=== PATIENT | female | born 1960 | race Caucasian/White ===

== ENCOUNTER 2019-05-24 09:37 | Emergency (ER) | payer OTHER, SELFPAY ==
[2019-05-24] VITALS (10 sets, daily range): BP systolic 148–175; BP diastolic 75–90; PULSE 68–84; RESP 16–20; TEMP 36.4; O2SAT 92–98; BMI 34.2
--- NOTE | 2019-05-24 09:49 | DI.RAD.S_ITS ---
PROCEDURE: XR CHEST 1V INDICATIONS: chest pain TECHNIQUE: One view of the chest was acquired. COMPARISON: None. FINDINGS: Surgical changes and devices: None. Lungs and pleura: Lungs are clear. No pleural effusions or pneumothorax. Mediastinum: Mediastinal contours appear normal. Heart size is normal. Bones and chest wall: No suspicious bony lesions. Overlying soft tissues appear unremarkable. IMPRESSION: No evidence acute pulmonary process. Dictated by: Matthew Simmons M.D. on 05/24/2019 at 10:25 Approved by: Matthew Simmons M.D. on 05/24/2019 at 10:25
--- NOTE | 2019-05-24 09:52 | ED_ITS ---
HPI - Chest Pain General Chief Complaint: Chest Pain Stated Complaint: tightness in chest/sob/sent by doctor Time Seen by Provider: 05/24/19 09:43 Source: patient Mode of arrival: Ambulatory Limitations: no limitations History of Present Illness HPI narrative: Patient is a 58-year-old female with history of hypertension hyperlipidemia and to primary family members with MIs at young ages sent over by her editor greeting card for increasing chest pain. She states that she has had chest discomfort off and on for about the last 6 months it does seem to be getting a little bit worse. She does have increasing chest pain with exertion and shortness of breath. She has been swimming for about a month but continues to have shortness of exertion. She currently denies any radiation of pain. MD complaint: chest pain Onset (ago): week(s) Duration: intermittent Onset: during exertion Pain location: substernal Severity: moderate Quality: heaviness Pain radiation: none Relieving factors: nothing Exacerbating factors: exertion Related Data Home Medications Medication Instructions Recorded Confirmed CoQ-10 300 mg PO DAILY 05/24/19 05/24/19 amitriptyline 25 mg PO BEDTIME 05/24/19 05/24/19 ascorbic acid (vitamin C) [Vitamin 1,000 mg PO DAILY 05/24/19 05/24/19 C With Veronica Hips] atorvastatin 20 mg PO QPM 05/24/19 05/24/19 cholecalciferol (vitamin D3) 5,000 unit PO DAILY 05/24/19 05/24/19 [Vitamin D3] duloxetine 60 mg PO DAILY 05/24/19 05/24/19 estradiol [Estrace] 2 g VAGINAL DAILY 05/24/19 05/24/19 gabapentin [Neurontin] 600 mg PO TID 05/24/19 05/24/19 lisinopril 10 mg PO DAILY 05/24/19 05/24/19 loratadine 10 mg PO DAILY 05/24/19 05/24/19 multivitamin 1 tab PO DAILY 05/24/19 05/24/19 pseudoephedrine HCl [Sudafed] 30 mg PO Q4-6H PRN 05/24/19 05/24/19 turmeric 1 dose PO DAILY 05/24/19 05/24/19 zolmitriptan [Zomig] 2.5 mg PO PRN PRN MDD 2 tabs 05/24/19 05/24/19 Allergies Allergy/AdvReac Type Severity Reaction Status Date / Time peanut Allergy Unknown Verified 05/24/19 10:28 tetracycline Allergy Verified 05/24/19 10:02 dextromethorphan AdvReac Intermediate Vomiting Verified 05/24/19 10:28 diphenhydramine AdvReac Intermediate Vomiting Verified 05/24/19 10:28 guaifenesin AdvReac Intermediate Vomiting Verified 05/24/19 10:28 Review of Systems Review of Systems Narrative: GENERAL: Denies chills, fatigue, malaise, fever, sweats, travel HEENT: Denies sinus pain, ear pain, sore throat, difficulty swallowing, neck pain RESPIRATORY: Denies dyspnea, cough, wheezing, hemoptysis, sputum. CARDIOVASCULAR: See HPI GASTROINTESTINAL: Denies nausea, vomiting, abdominal pain, diarrhea, constipation, melena. : Denies dysuria, frequency, incontinence, hematuria, urinary retention, flank pain. MUSCULOSKELETAL: Denies weakness, joint pain, or bony pain SKIN: No rash, no erythema, no pruritus NEUROLOGIC: Denies weakness, dizziness, headache, numbness, change in speech, confusion PSYCHIATRIC: No concerning psychosocial issues. 12 point review of systems is negative except for those stated above and HPI Patient History Medical History (Updated 05/24/19 @ 13:04 by Juana Samuel DO) Fibromyalgia (Acute) Hyperlipidemia (Acute) Hypertension (Acute) Social History Smoking Status: Never smoker Substance Use Type: does not use Exam Initial Vital Signs Initial Vital Signs: Vital Signs Pulse Rate 81 05/24/19 09:40 Respiratory Rate 20 05/24/19 09:40 Blood Pressure 175/88 H 05/24/19 09:40 Pulse Oximetry 97 05/24/19 09:40 GENERAL: Overweight well-appearing middle-aged female and in no acute distress. HEENT: Head atraumatic,EOMI, pupils reactive, face symmetric, moist mucous membranes CARDIOVASCULAR: Regular rate and rhythm without murmurs, rubs or gallops. RESPIRATORY: Breath sounds equal bilaterally, no wheezes rales or rhonchi. ABDOMEN: Soft, nontender. Normoactive bowel sounds all 4 quadrants. No guarding or rebound. : No CVA tenderness EXTREMITIES: Normal range of motion, no clubbing or edema. Neurovascularly i ntact NEUROLOGICAL: Alert and oriented x4.Normal gait and speech. Cranial nerves II through XII grossly intact. SKIN: Warm, dry, no laceration, no petechiae, no rashes or lesions. Course Orders Ordered: ED Orders 05/24/19 09:49 XR chest 1V Stat EKG-12 Lead Stat 05/24/19 10:30 B Type Natriuretic Peptide Stat Complete Blood Count AUTO DIFF Stat Comprehensive Metabolic Panel Stat Lipase Stat Partial Thromboplastin Time Stat Prothrombin Time INR Stat Troponin & CK Cardiac Panel Stat 05/24/19 12:20 UA Complete [Urinalysis and Microscopic] Stat Discontinued Medications Aspirin (Aspirin Chew) 324 mg PO NOW ONE Stop: 05/24/19 09:50 Last Admin: 05/24/19 10:09 Dose: 324 mg Documented by: [email or web address] Sodium Chloride (Normal Saline 0.9%) 1,000 mls @ 150 mls/hr IV CONT DEVONTE Last Infusion: 05/24/19 13:02 Dose: 150 mls/hr Documented by: Admin: 05/24/19 10:09 Dose: 150 mls/hr Documented by: [email or web address] Morphine Sulfate (Morphine) 2 mg IV NOW ONE Stop: 05/24/19 11:17 Last Admin: 05/24/19 11:58 Dose: 2 mg Documented by: STEPHEN Nitroglycerin (Nitrostat) 0.4 mg SL [id number] PRN PRN Reason: Chest Pain Last Admin: 05/24/19 11:06 Dose: 0.4 mg Documented by: Admin: 05/24/19 10:39 Dose: 0.4 mg Documented by: Admin: 05/24/19 10:30 Dose: 0.4 mg Documented by: CAROSENKarlo Consultations Consultation #1: Dr. Vega, editor greeting card is who referred patient to the ER has been updated patient's symptoms and test results. He recommends transferring patient to the ER for a coronary CT angio. Time: 11:17 Consultation #2: I spoke with Dr. Leal, at [facility] ER physician, updated on patient's symptoms test results along Cardiology recommendations. Accepts patient for transfer Time: 11:49 Vital Signs Vital signs: Vital Signs - 8 hr 05/24/19 09:40 05/24/19 10:30 05/24/19 10:38 Temperature 97.6 F Pulse Rate 81 71 77 Respiratory Rate 20 16 Blood Pressure 175/88 H 168/82 H Blood Pressure [Left Arm] 168/82 H Pulse Oximetry 97 98 05/24/19 10:39 05/24/19 11:06 05/24/19 11:15 Temperature Pulse Rate 71 74 84 Respiratory Rate Blood Pressure 148/90 H 157/76 H Blood Pressure [Left Arm] Pulse Oximetry 92 05/24/19 11:45 05/24/19 12:15 05/24/19 12:45 Temperature Pulse Rate 68 72 75 Respiratory Rate Blood Pressure Blood Pressure [Left Arm] Pulse Oximetry 96 95 05/24/19 12:58 Temperature Pulse Rate 79 Respiratory Rate 19 Blood Pressure Blood Pressure [Left Arm] 167/75 H Pulse Oximetry 97 MDM - Chest Pain Lab Data Attestation: I reviewed the patient's lab results. Result diagrams: 05/24/19 10:30 05/24/19 10:30 Labs: Lab Results 05/24/19 05/24/19 05/24/19 Range/Units 10:30 10:30 10:30 WBC 5.6 (4.5-11.0) X10^3/uL RBC 4.54 (4.0-5.2) X10^6/uL Hgb 13.5 (12.0-16.0) g/dL Hct 39.9 (36-46) % MCV 88.0 (80-100) fL MCH 29.7 (26-34) PG MCHC 33.8 (30-36) % RDW 13.2 (11.6-14.8) % Plt Count 337 (150-400) X10^3/uL Neut % (Auto) 53.7 (50-75) % Lymph % (Auto) 34.8 (25-40) % [place] % (Auto) 8.0 (3-14) % Eos % (Auto) 2.3 (2-4) % Baso % (Auto) 1.2 (0-2) % Neut # (Auto) 3000 (8912-0216) /uL Lymph # (Auto) 2000 (7583-0101) /uL [place] # (Auto) 400 (0-900) /uL Eos # (Auto) 100 (0-450) /uL Baso # (Auto) 100 (0-100) /uL PT 11.5 (10.1-12.7) SECONDS INR 1.0 (0.9-1.3) APTT 39 H (26.4-36.2) SECONDS Sodium 141 (137-145) mmol/L Potassium 3.9 (3.4-5.1) mmol/L Chloride 107 (98-107) mmol/L Carbon Dioxide 24 (22-32) mmol/L BUN 13 (7-17) mg/dL Creatinine 0.60 (0.52-1.04) mg/dL Estimated GFR > 60.0 (>60) mL/min BUN/Creatinine Ratio 21.7 (6-22) Glucose 101 H (70-100) mg/dL Calcium 9.4 (8.4-10.2) mg/dL Total Bilirubin 0.9 (0.2-1.3) mg/dL AST 29 (14-36) IU/L ALT 17 (<35) IU/L Alkaline Phosphatase 86 (38-126) U/L Total Creatine Kinase 64 (30-135) U/L CK-MB (CK-2) TNP CK-MB (CK-2) Rel Index TNP Troponin I < 0.012 (0.01-0.034) ng/mL B-Natriuretic Peptide < 100 (<100) Total Protein 7.9 (6.3-8.2) g/dL Albumin 4.7 (3.5-5.0) g/dL Globulin 3.2 (1.7-4.1) g/dL Albumin/Globulin Ratio 1.5 (1.0-2.8) Lipase 46 (23-300) U/L Urine Color Urine Appearance Urine pH (4.5-8.0) Ur Specific [place] (1.000-1.035) Urine Protein (Negative) Urine Glucose (UA) (Negative) g/dL Urine Ketones (NEGATIVE) Urine Occult Blood (Negative) Urine Nitrate (Negative) Urine Bilirubin (NEGATIVE) Urine Urobilinogen (0.2) E.U./dL Ur Leukocyte Esterase (NEGATIVE) Urine RBC (0-5/HPF) Urine WBC (0-5/HPF) Ur Squamous Epith Cells (0-5/HPF) Urine Bacteria (None) Ur Culture Indicated? 05/24/19 Range/Units 12:20 WBC (4.5-11.0) X10^3/uL RBC (4.0-5.2) X10^6/uL Hgb (12.0-16.0) g/dL Hct (36-46) % MCV (80-100) fL MCH (26-34) PG MCHC (30-36) % RDW (11.6-14.8) % Plt Count (150-400) X10^3/uL Neut % (Auto) (50-75) % Lymph % (Auto) (25-40) % [place] % (Auto) (3-14) % Eos % (Auto) (2-4) % Baso % (Auto) (0-2) % Neut # (Auto) (2653-8874) /uL Lymph # (Auto) (2331-6836) /uL [place] # (Auto) (0-900) /uL Eos # (Auto) (0-450) /uL Baso # (Auto) (0-100) /uL PT (10.1-12.7) SECONDS INR (0.9-1.3) APTT (26.4-36.2) SECONDS Sodium (137-145) mmol/L Potassium (3.4-5.1) mmol/L Chloride (98-107) mmol/L Carbon Dioxide (22-32) mmol/L BUN (7-17) mg/dL Creatinine (0.52-1.04) mg/dL Estimated GFR (>60) mL/min BUN/Creatinine Ratio (6-22) Glucose (70-100) mg/dL Calcium (8.4-10.2) mg/dL Total Bilirubin (0.2-1.3) mg/dL AST (14-36) IU/L ALT (<35) IU/L Alkaline Phosphatase (38-126) U/L Total Creatine Kinase (30-135) U/L CK-MB (CK-2) CK-MB (CK-2) Rel Index Troponin I (0.01-0.034) ng/mL B-Natriuretic Peptide (<100) Total Protein (6.3-8.2) g/dL Albumin (3.5-5.0) g/dL Globulin (1.7-4.1) g/dL Albumin/Globulin Ratio (1.0-2.8) Lipase (23-300) U/L Urine Color Yellow Urine Appearance Clear Urine pH 7.0 (4.5-8.0) Ur Specific [place] <=1.005 (1.000-1.035) Urine Protein Negative (Negative) Urine Glucose (UA) Negative (Negative) g/dL Urine Ketones Negative (NEGATIVE) Urine Occult Blood Negative (Negative) Urine Nitrate Negative (Negative) Urine Bilirubin Negative (NEGATIVE) Urine Urobilinogen 0.2 (0.2) E.U./dL Ur Leukocyte Esterase Negative (NEGATIVE) Urine RBC None seen (0-5/HPF) Urine WBC 0-1/hpf (0-5/HPF) Ur Squamous Epith Cells 0-1 /hpf (0-5/HPF) Urine Bacteria None seen (None) Ur Culture Indicated? Cult not indicated Imaging Data Chest x-ray: Radiologist's impression: PROCEDURE: XR CHEST 1V INDICATIONS: chest pain TECHNIQUE: One view of the chest was acquired. COMPARISON: None. FINDINGS: Surgical changes and devices: None. Lungs and pleura: Lungs are clear. No pleural effusions or pneumothorax. Mediastinum: Mediastinal contours appear normal. Heart size is normal. Bones and chest wall: No suspicious bony lesions. Overlying soft tissues appear unremarkable. IMPRESSION: No evidence acute pulmonary process. Dictated by: Matthew Simmons M.D. on 05/24/2019 at 10:25 ECG Data Attestation: I personally reviewed and interpreted this ECG as follows: Prior ECG tracings: not available for review Interpretation: Normal sinus rhythm rate 77 p.r. will [address] changes no T- wave inversions no priors to compare MDM Narrative Medical decision making narrative: Patient had 3 nitroglycerin which improved her chest pain significantly but it still remained very mild at [place] 1. She was given morphine which decreased her chest pain completely. Patient is being transferred to [facility] where her editor greeting card is for further evaluation of her chest discomfort. Discharge Plan Departure Patient Disposition: [facility] Clinical Impression: Chest pain Qualifiers: Chest pain type: unspecified Qualified Code(s): R07.9 - Chest pain, unspecified Discharge Date/Time: 05/24/19 13:06 Prescriptions: No Action gabapentin [Neurontin] 600 mg tablet 600 mg PO TID RF: 0 atorvastatin 20 mg tablet 20 mg PO QPM RF: 0 zolmitriptan [Zomig] 2.5 mg tablet 2.5 mg PO PRN MDD 2 tabs PRN (Reason: Migraine Headache) RF: 0 amitriptyline 25 mg tablet 25 mg PO BEDTIME RF: 0 lisinopril 10 mg tablet 10 mg PO DAILY RF: 0 loratadine 10 mg tablet 10 mg PO DAILY RF: 0 duloxetine 60 mg capsule,delayed release(DR/EC) 60 mg PO DAILY RF: 0 multivitamin Tablet 1 tab PO DAILY RF: 0 pseudoephedrine HCl [Sudafed] 30 mg Tablet 30 mg PO Q4-6H PRN (Reason: Congestion) RF: 0 estradiol [Estrace] 0.01 % (0.1 mg/gram) Cream 2 g VAGINAL DAILY RF: 0 cholecalciferol (vitamin D3) [Vitamin D3] 5,000 unit Tablet 5,000 unit PO DAILY RF: 0 ascorbic acid (vitamin C) [Vitamin C With Veronica Hips] 500 mg Tablet 1,000 mg PO DAILY RF: 0 CoQ-10 300 mg capsule 300 mg PO DAILY RF: 0 turmeric liquid 1 dose PO DAILY RF: 0 Referrals: Saji Campbell [Primary Care Provider] -
[2019-05-24] MEDS: ASPIRIN 81 MG CHEW TAB 324 MG PO (10:09)
[2019-05-24] MEDS: SODIUM CHLORIDE 0.9% 1,000 ML 150 ML IV (10:09)
[2019-05-24] MEDS: NITROGLYCERIN 0.4 MG SL TAB SL ×3 (10:30→11:06)
[2019-05-24 10:41] LABS: Add Manual Diff / Slide Review NO; Basophils Absolute Auto 100 /uL (0-100); Basophils Percent Auto 1.2 % (0-2); Eosinophils Absolute Auto 100 /uL (0-450); Eosinophils Percent Auto 2.3 % (2-4); Hematocrit 39.9 % (36-46); Hemoglobin 13.5 g/dL (12.0-16.0); Lymphocytes Absolute Auto 2000 /uL (1100-4500); Lymphocytes Percent Auto 34.8 % (25-40); Mean Corpuscular HGB Conc 33.8 % (30-36); Mean Corpuscular Hemoglobin 29.7 PG (26-34); Monocytes Absolute Auto 400 /uL (0-900); Neutrophils Absolute Auto 3000 /uL (1500-7000); Neutrophils Percent Auto 53.7 % (50-75); Platelet Count 337 X10^3/uL (150-400); Red Blood Cell Count 4.54 X10^6/uL (4.0-5.2); Red Cell Distribution Width 13.2 % (11.6-14.8); White Blood Cell Count 5.6 X10^3/uL (4.5-11.0)
--- NOTE | 2019-05-24 10:43 | PC.NURSE ---
hx of fibromyalgia, with intermittent chest discomfort, today was her first visits with cardiology, sent here. described chest tightness, shortness of breath with slight exertion always with coughing, denies fever,chills, denies vomiting or diarrhea, denies skin infections. pt recieved nitro without any changes, dr draper aware, may repeat x1.
[2019-05-24 10:49] LABS: Prothrombin Time 11.5 SECONDS (10.1-12.7)
[2019-05-24 10:52] LABS: PTT Partial Thromboplastin Tim 39 SECONDS (26.4-36.2)
[2019-05-24 10:53] LABS: Alanine Aminotransferase 17 IU/L (<35); Albumin 4.7 g/dL (3.5-5.0); Albumin Globulin Ratio 1.5 (1.0-2.8); Alkaline Phosphatase 86 U/L (38-126); Aspartate Aminotransferase 29 IU/L (14-36); BUN Creatinine Ratio 21.7 (6-22); Bilirubin Total 0.9 mg/dL (0.2-1.3); Blood Urea Nitrogen 13 mg/dL (7-17); Calcium 9.4 mg/dL (8.4-10.2); Carbon Dioxide 24 mmol/L (22-32); Chloride 107 mmol/L (98-107); Creatine Kinase 64 U/L (30-135); Estimated Glomerular Filt Rate > 60.0 mL/min (>60); Globulin 3.2 g/dL (1.7-4.1); Glucose 101 mg/dL (70-100); HEMOLYSIS < 15 (0-50); Lipase 46 U/L (23-300); Potassium 3.9 mmol/L (3.4-5.1); Sodium 141 mmol/L (137-145); Total Protein 7.9 g/dL (6.3-8.2)
[2019-05-24 10:58] LABS: B Type Natriuretic Peptide < 100 (<100)
[2019-05-24 11:05] LABS: Troponin I < 0.012 ng/mL (0.01-0.034)
[2019-05-24] MEDS: MORPHINE 2 MG/ML INJ IV (11:58)
[2019-05-24 12:33] LABS: Bacteria Urine None Seen; RBC Urine None Seen (0-5/HPF)
[2019-05-24 12:36] LABS: Appearance Urine UA CLEAR; Bilirubin Urine UA NEGATIVE (NEGATIVE); Color Urine UA YELLOW; Glucose Urine UA NEGATIVE (Negative); Ketones Urine UA NEGATIVE (NEGATIVE); Leukocyte Esterase Urine UA NEGATIVE (NEGATIVE); Nitrite Urine UA NEGATIVE (Negative); Occult Blood Urine UA NEGATIVE (Negative); Protein Urine UA NEGATIVE (Negative); Specific Gravity Urine UA <=1.005 (1.000-1.035); Urobilinogen Urine UA 0.2 E.U./dL (0.2)
[2019-05-24 12:49] LABS: Culture Indicated Urine Cult Not Indicated; Squamous Epithelial Cell Urine 0-1 /HPF (0-5/HPF); WBC Urine 0-1/HPF (0-5/HPF)
--- NOTE | 2019-05-24 13:06 | PC.NURSE ---
pt states, co worker is going to pick up attendant her car, keys left at the front office supervisor.
== END 2019-05-24 13:06 | disposition short-term general hospital (02) ==
PROVIDERS: Emergency Provider Emergency Medicine; Family Provider Internal Medicine Cardiovascular Disease; PCP Family Medicine
DX: R07.9 Chest pain, unspecified (principal); I11.0 Hypertensive heart disease with heart failure; E78.5 Hyperlipidemia, unspecified
CPT/HCPCS: 36415; 71045; 80053; 81001; 82550; 83690; 83880; 84484; 85025; 85610; 85730; 93005; 96361; 96374; 99283; 99285; J2270

== ENCOUNTER → 2020-05-03 09:30 | Outpatient (CLI) | payer OTHER, SELFPAY ==
--- NOTE | 2020-05-03 | DI.MRI.S_ITS ---
PROCEDURE: MR LUMBAR SPINE WO CON INDICATIONS: Sciatica, right pain TECHNIQUE: Noncontrast sagittal T1 spin echo and T2 fast echo, sagittal STIR, axial T1 and T2 fast spin echo through the lumbar spine. In cases with scoliosis, additional coronal T2 fast spin echo may be performed. COMPARISON: None. FINDINGS: Image quality: Excellent. Alignment and Curvature: Trace degenerative retrolisthesis of L1 on L2. There is otherwise normal bony alignment. Bone Marrow: Marrow is of normal overall signal. No acute vertebral body compression fractures. Spinal Cord: Conus medullaris terminates at the top of L1 level. Visualized cord demonstrates normal signal and size. Paraspinous Soft Tissues: No paravertebral masses. T11-T12: No canal stenosis or foraminal stenosis. T12-L1: No canal stenosis or foraminal stenosis. L1-L2: Trace retrolisthesis of L1 on L2. Moderate diffuse disc bulge. Mild facet hypertrophy. Borderline canal stenosis. L2-L3: Mild disc bulge. Mild facet hypertrophy. No canal stenosis. Far right lateral disc bulge. Mild right foraminal narrowing. L3-L4: Diffuse disc bulge. Facet and ligament hypertrophy. Mild canal stenosis. Bilateral foraminal disc bulges with mild bilateral foraminal stenosis. L4-L5: Disc bulge. Facet and ligament hypertrophy. Borderline canal stenosis. Bilateral foraminal disc bulges. Moderate right foraminal narrowing with mild flattening deformity on the exiting right L4 nerve root. Mild left foraminal narrowing. L5-S1: Disc bulge. Mild facet hypertrophy. No canal stenosis or foraminal stenosis. IMPRESSION: 1. Multilevel disc bulges and multilevel facet hypertrophy. 2. Borderline canal stenosis at L1-L2. Mild canal stenosis at L3-L4. Borderline canal stenosis at L4-L5. 3. Moderate right foraminal narrowing at L4-L5. Dictated by: Matthew Simmons M.D. on 05/03/2020 at 10:18 Approved by: Matthew Simmons M.D. on 05/03/2020 at 10:24
== END ==
PROVIDERS: Family Provider Internal Medicine Cardiovascular Disease; PCP Family Medicine; Referring Provider Family Medicine; Visit Provider Family Medicine
DX: M51.16 Intervertebral disc disorders with radiculopathy, lumbar region (principal); M51.17 Intervertebral disc disorders with radiculopathy, lumbosacral region; M48.061 Spinal stenosis, lumbar region without neurogenic claudication
CPT/HCPCS: 72148

== ENCOUNTER → 2024-04-27 10:08 | Outpatient (CLI) | payer OTHER, SELFPAY | PROVIDERS: Family Provider Internal Medicine Cardiovascular Disease; PCP Family Medicine; Referring Provider Internal Medicine Critical Care Medicine; Visit Provider Internal Medicine Critical Care Medicine | DX: R06.2 Wheezing (principal); R06.02 Shortness of breath; R06.09 Other forms of dyspnea; R94.2 Abnormal results of pulmonary function studies | CPT/HCPCS: 94060; 94070; 94726; 94729 ==

== ENCOUNTER → 2024-06-11 09:16 | Outpatient (CLI) | payer OTHER, SELFPAY ==
--- NOTE | 2024-06-11 09:17 | DI.MRI.S_ITS ---
PROCEDURE: MR CERVICAL SPINE WO CON INDICATIONS: Radiculopathy, cervical region TECHNIQUE: Noncontrast sagittal T1 spin echo and T2 fast spin echo, sagittal STIR, foraminal oblique sagittal T2 fast spin echo, and axial gradient echo or T2 fast spin echo through the cervical spine. COMPARISON: None. FINDINGS: Image quality: Excellent. Alignment and Curvature: There is normal bony alignment. Bone Marrow: Marrow demonstrates normal overall signal. Spinal Cord: Visualized spinal cord has normal size and signal. No cerebellar tonsillar herniation. Paraspinous Soft Tissues: No paravertebral masses. Prevertebral soft tissues are normal in thickness. C2-C3: Normal appearance. C3-C4: Mild focal central posterior disc protrusion minimally indenting on the ventral cord in the midline. Mild to moderate resultant canal stenosis. AP diameter of the canal is 9.1 mm at this level. Reference T2 axial image 19 of series 5. Left facet hypertrophy. No foraminal stenosis. C4-C5: No canal stenosis. Right facet hypertrophy. No foraminal stenosis. C5-C6: Chronic disc height loss. Disc bulge plus osteophyte abutting the ventral surface of the cord. No significant canal stenosis. AP diameter of the central canal is 11.3 mm. Reference axial image 29 of series 5. Bilateral uncovertebral joint hypertrophy. Bilateral facet hypertrophy. Moderate bilateral foraminal narrowing with flattening deformity on the exiting bilateral C6 nerve roots. C6-C7: No canal stenosis or foraminal stenosis. C7-T1: No canal stenosis or foraminal stenosis. IMPRESSION: 1. At C3-C4, there is a mild central posterior disc protrusion indenting on the ventral cord with resultant [id number] canal stenosis. 2. Multilevel facet arthropathy. 3. Moderate bilateral foraminal narrowing at C5-C6. Dictated by: Matthew Simmons M.D. on 06/13/2024 at 9:37 Approved by: Matthew Simmons M.D. on 06/13/2024 at 9:43
--- NOTE | 2024-06-11 09:17 | DI.MRI.S_ITS ---
PROCEDURE: MR LUMBAR SPINE WO CON INDICATIONS: Radiculopathy, lumbar region TECHNIQUE: Noncontrast sagittal T1 spin echo and T2 fast echo, sagittal STIR, and T2 fast spin echo through the lumbar spine. In cases with scoliosis, additional coronal T2 fast spin echo may be performed. COMPARISON: [facility], MR, MR LUMBAR SPINE WO CON, 05/03/2020, 9:40. FINDINGS: Image quality: Excellent. Alignment and Curvature: There is normal bony alignment. Bone Marrow: Marrow is of normal overall signal. No acute vertebral body compression fractures. Spinal Cord: Conus medullaris terminates at the L1 level. Visualized cord demonstrates normal signal and size. Paraspinous Soft Tissues: No paravertebral masses. T12-L1: Normal appearance. L1-L2: Chronic disc height loss. This is increased slightly. Posterior disc post osteophyte. Facet hypertrophy. No significant canal stenosis. No significant foraminal stenosis. L2-L3: Disc right lateral annulus tear plus disc bulge subjacent to the right L2 nerve root. This may be new, not clearly identified on the previous study. Reference axial images 14 and 15 of series 7. Recommend correlation for presence or absence of right L2 radiculitis symptoms. L3-L4: Minimal disc bulge. Facet hypertrophy. Stable mild canal stenosis. [id number] bilateral foraminal stenosis. L4-L5: Interval increase in disc height loss. Disc bulge. Facet and ligament hypertrophy. Slight progression of canal stenosis, mild. Mild progression of foraminal narrowing, moderate bilaterally. L5-S1: Facet hypertrophy. No canal stenosis or foraminal stenosis. IMPRESSION: 1. Multilevel underlying facet arthropathy. 2. Mild progression of canal stenosis. There is mild canal stenosis now at L3-L4 and L4-L5. 3. Possible new far right lateral annulus tear at L2-L3. Recommend correlation for presence or absence of right L2 radiculitis symptoms. 4. Multilevel foraminal narrowing as described above, now moderate bilaterally at L4-L5. Dictated by: Matthew Simmons M.D. on 06/13/2024 at 10:44 Approved by: Matthew Simmons M.D. on 06/13/2024 at 10:55
== END ==
PROVIDERS: Family Provider Internal Medicine Cardiovascular Disease; PCP Physician Assistant; Referring Provider Acupuncturist; Visit Provider Acupuncturist
DX: M50.11 Cervical disc disorder with radiculopathy, high cervical region (principal); M48.02 Spinal stenosis, cervical region; M47.22 Other spondylosis with radiculopathy, cervical region; M47.26 Other spondylosis with radiculopathy, lumbar region; M47.27 Other spondylosis with radiculopathy, lumbosacral region; M48.061 Spinal stenosis, lumbar region without neurogenic claudication
CPT/HCPCS: 72141; 72148

== ENCOUNTER → 2024-06-17 10:01 | Outpatient (CLI) | payer OTHER, SELFPAY ==
--- NOTE | 2024-06-17 10:02 | DI.CT.S_ITS ---
PROCEDURE: CT SOFT TISSUE NECK WO CON INDICATIONS: Dyspnea, abnormal flow volume loop TECHNIQUE: Non-contrast 3.0 mm axial sections acquired from the sella to the aortic arch. Additional oblique axial 3.0 mm sections acquired through the pharynx. 3 mm thick coronal and sagittal reformats were generated. For radiation dose reduction, the following was used: automated exposure control. COMPARISON: None. FINDINGS: Image quality: Excellent. Lymph nodes: No enlarged lymph nodes seen throughout the neck. Vessels: Non-opacified vessels appear normal in caliber. Neck spaces: The oropharynx, nasopharynx, and pharynx demonstrate no mucosal lesions. The vocal cords, false vocal cords, pyriform sinuses, epiglottis, vallecula, and tongue base all appear normal. Extramucosal spaces appear unremarkable. Glands: The parotid and submandibular glands appear normal, without stones. Thyroid gland demonstrates a 2 cm nodule in the left lobe . Bones: No aggressive osseous abnormality. No displaced fractures. Mild degenerative changes of the spine. Miscellaneous: Visualized brain and orbits appear normal. Lung apices appear clear, please refer to same day CT of the chest. Superficial soft tissues appear normal. IMPRESSION: The airway appears patent. No acute findings within the neck. Left thyroid lobe nodule measuring 2 cm, recommend dedicated thyroid ultrasound if not previously obtained. Dictated by: Mikie Cornejo M.D. on 06/17/2024 at 14:23 Approved by: Mikie Cornejo M.D. on 06/17/2024 at 14:26
--- NOTE | 2024-06-17 10:02 | DI.CT.S_ITS ---
PROCEDURE: CT CHEST HIGH RESOLUTION INDICATIONS: Dyspnea, abnormal PFT, eval for diaphragm or lung abnormality TECHNIQUE: Noncontrast 1.0 and 5.0 mm thick contiguous axial sections from the pulmonary apex to the posterior costophrenic angles, with 7 mm thick coronal and sagittal MIP reformats. 1 mm thick dynamic expiratory images acquired through the upper, mid, and lower lungs. 1.0 mm thick axial sections acquired from the zhane to the posterior costophrenic angles in the prone end-inspiration position. For radiation dose reduction, the following was used: automated exposure control, adjustment of mA and/or kV according to patient size. COMPARISON: None. FINDINGS: Image quality: Diagnostic Lungs and pleura: Atelectasis/scarring. No significant peripheral reticulation. No dense airspace disease or pleural effusions. On expiratory images, there is moderate diffuse air trapping, for example in the left upper lobe in particular. Some of the areas of basal atelectasis resolve on prone imaging. No overtly suspicious pulmonary nodule. Mediastinum, heart, and esophagus: Normal heart size there are coronary calcifications. No pathologic lymph nodes by size criteria. Chest wall and thyroid: 2.4 cm left thyroid nodule chest wall is unremarkable. Possible right breast focal asymmetry posterior depth central to the nipple. Upper abdomen: Possible gallbladder sludge versus tiny gallstones. Bones: Degenerative osseous changes. IMPRESSION: No significant findings of interstitial lung disease. Mild areas of scarring/atelectasis are present. Moderate multifocal air trapping seen on expiratory views, which is suggestive of chronic bronchiolitis. 2.4 cm left thyroid nodule, nonurgent sonographic follow-up is advised. There is a possible focal asymmetry in the posterior depth central region of the right breast. Mammographic workup and possible ultrasound are suggested if not recently obtained elsewhere. Possible tiny gallbladder stones versus sludge. Dictated by: Shaun Shook M.D. on 06/17/2024 at 13:25 Approved by: Shaun Shook M.D. on 06/17/2024 at 13:31
== END ==
PROVIDERS: Family Provider Internal Medicine Cardiovascular Disease; PCP Physician Assistant; Referring Provider Internal Medicine Critical Care Medicine; Visit Provider Internal Medicine Critical Care Medicine
DX: R94.2 Abnormal results of pulmonary function studies (principal); E04.1 Nontoxic single thyroid nodule
CPT/HCPCS: 70490; 71250

== ENCOUNTER → 2024-09-06 10:15 | Outpatient (CLI) | payer OTHER, SELFPAY ==
--- NOTE | 2024-09-06 10:16 | DI.US.S_ITS ---
PROCEDURE: US THYROID INDICATIONS: THY NODULE. SUPRACLAV. SWELLING -?LYMPHADENOPATHY TECHNIQUE: Real-time scanning was performed of the thyroid gland, with image documentation. COMPARISON: None. FINDINGS: Thyroid: Right lobe measures 4.7 x 1.4 x 1.1 cm. Left lobe measures 5.2 x 1.8 x 2.0 cm. Isthmus is 0.4 cm thick. Echotexture is homogeneous. Nodule number: 1 Location: Left mid Size: 2.7 x 1.4 x 2.2 cm. Composition: Solid Echogenicity: Isoechoic Shape: wider than tall. Margins: Smooth Echogenic foci: None Total points: 3 ACR TI-RADS category: 3 Nodule number: 2 Location: Left inferior Size: 1.6 x 1.0 x 1.6 cm. Composition: Predominantly solid Echogenicity: Isoechoic Shape: wider than tall. Margins: Lobulated Echogenic foci: Punctate Total points: 7 ACR TI-RADS category: 5 IMPRESSION: Category 5 nodule as well as category 3 nodule in the left thyroid both meet ACR criteria 1. ACR TI-RADS definitions and recommendations: TI-RADS 1 (benign): 0 points. FNA not needed. TI-RADS 2 (not suspicious): 2 points. FNA not needed. TI-RADS 3: 3 points. * FNA if 2.5 cm or larger, follow up if 1.5 cm or larger (at 1, 3, and 5 years). TI-RADS 4: 4-6 points. * FNA if 1.5 cm or larger, follow up if 1 cm or larger (at 1, 2, 3, and 5 years). TI-RADS 5: 7 points or more. * FNA if 1 cm or larger, follow up if 0.5 cm or larger (every year for 5 years). Dictated by: Rico Baltazar M.D. on 09/06/2024 at 16:20 Approved by: Rico Baltazar M.D. on 09/06/2024 at 16:34
== END ==
LOC: US 10:15
PROVIDERS: Family Provider Internal Medicine Cardiovascular Disease; PCP Physician Assistant; Referring Provider Physician Assistant; Visit Provider Physician Assistant
DX: E04.2 Nontoxic multinodular goiter (principal); R60.9 Edema, unspecified
CPT/HCPCS: 76536

== ENCOUNTER → 2024-11-07 13:06 | Outpatient (CLI) | payer OTHER, SELFPAY ==
--- NOTE | 2024-11-07 13:11 | DI.US.S_ITS ---
PROCEDURE: US FINE NEEDLE ASPIRATION INDICATIONS: MULTIPLE THYROID NODULES TECHNIQUE: The indications, alternatives, benefits, risks, and complications of the procedure were explained to the patient. Written informed consent was obtained and placed in the chart. The thyroid region was examined sonographically and a site was chosen for ultrasound guided percutaneous sampling. The skin was prepared and draped in the usual fashion, and anesthetized with 1% lidocaine infiltrated from the skin down to the thyroid gland. Multiple passes were then performed, with contents emptied into an appropriate pathology specimen container. A bandage was applied to the area of access at completion of the study. COMPARISON: None. FINDINGS: Location(s) of lesion(s) sampled: Left thyroid nodules (1 and 2) [place]: 25 gauge hypodermic needles. Number of passes: 6 and 4 Medications: 1% lidocaine for local anaesthesia. Complications: None. IMPRESSION: Successful ultrasound-guided thyroid nodules fine needle aspiration, with cytology results pending. Please see chart below for management recommendations based on cytology results. [place] [facility] ReportingRecommendationsNon-diagnostic* Repeat US-guided FNA, with on-site cytology evaluation if possible. * Repeated non-diagnostic nodules without high suspicion US features: close observation vs surgical consult. * Consider surgery if nodule has high suspicion US features, grows >20% in 2 dimensions on followup, or patient has clinical risk factors for malignancy. Benign* If nodule has high suspicion US features: repeat US and FNA within 12 months. * If nodule has low to intermediate suspicion US features: repeat US at 12-24 months. If nodule grows (20% increase in at least 2 dimensions, with minimal increase of 2 mm or >50% change in volume), or development of new suspicious US features, then repeat FNA or continue followup. * If nodule has very low suspicion US features: followup US at >24 months. Atypia of undetermined significance, follicular lesion of undetermined significanceRepeat FNA, molecular testing, followup US, or surgical consult.Follicular neoplasm, suspicious for follicular neoplasmSurgical consult; also consider molecular testing. Suspicious for malignancySurgical consult.MalignantSurgical consult. Dictated by: Shaun Shook M.D. on 11/07/2024 at 15:36 Approved by: Shaun Shook M.D. on 11/07/2024 at 15:37
--- NOTE | 2024-11-07 14:12 | PATH_ITS ---
Note [facility] Accession Number: [id number] TESTS RESULT FLAG UNITS REF RANGE LAB Clinician Provided Cytology Information No. of containers..01 Other (Miscellaneous) No. of containers..06 Previously Prepared Cytology Slide Source: LEFT THYROID NODULE #1 (B) DIAGNOSIS: LEFT THYROID NODULE #1 (B) INCONCLUSIVE. [place] CATEGORY III. ATYPIA OF UNDETERMINED SIGNIFICANCE. MILD CYTOLOGIC AND ARCHITECTURAL ATYPIA. Pathologist ICD10: R89.6 Signed out by: Jannie Walsh DO, Pathologist NPI- [id number] Performed by: Azalea Figueredo, [employer] ([facility]) Gross description: 30 CC, RED, HAZY RECIEVED: IN CYTOLYT WITH 8 ALCOHOL FIXED AND 8 QUICK STAINED SLIDES ALSO 1 RNA VIAL WILL ON 02-10-2025.VO /VDU 11/08/[address] [place] [address] FLAG LEGEND: L-Low Normal,H-High Normal,LL-Alert Low,HH-Alert High <-Panic Low,>-Panic High,A-Abnormal,AA-Critical Abnormal Performed at: 01 =Z [facility], [place] [address] Dar Fulton MD, Performed at: 01 [facility] [address] [place] [address] [address], [place], [place] [id number] MD Dar Fulton MD Phone: [phone]
--- NOTE | 2024-11-07 14:16 | PATH_ITS ---
Note [facility] Accession Number: [id number] TESTS RESULT FLAG UNITS REF RANGE LAB Clinician Provided Cytology Information No. of containers..01 Other (Miscellaneous) No. of containers..08 Previously Prepared Cytology Slide Source: LEFT THYROID NODULE #2 (A) DIAGNOSIS: LEFT THYROID NODULE #2 (A) BENIGN. [place] CATEGORY II. SPECIMEN CONSISTS OF BENIGN FOLLICULAR CELLS, HEMOSIDERIN-LADEN MACROPHAGES, COLLOID, AND BLOOD. THIS PATTERN IS CONSISTENT WITH FOLLICULAR NODULAR DISEASE. Pathologist ICD10: 01 E04.1 Signed out by: Jannie Walsh DO, Pathologist NPI- [id number] Performed by: Eriberto Kidd, [employer] Developer ([facility]) Gross description: 30 CC, COLORLESS, CLEAR RECIEVED: IN CYTOLYT WITH 4 ALCOHOL FIXED AND 4 QUICK STAINED SLIDES ALSO 1 RNA VIAL WILL ON 02-10-2025.VO /VDU 11/08/2024 [address] FLAG LEGEND: L-Low Normal,H-High Normal,LL-Alert Low,HH-Alert High <-Panic Low,>-Panic High,A-Abnormal,AA-Critical Abnormal Performed at: 01 =Z [facility], [place] [address] Dar Fulton MD, Performed at: [address], [place], [place] [id number] MD Dar Fulton MD Phone: [phone]
== END ==
PROVIDERS: Family Provider Internal Medicine Cardiovascular Disease; PCP Physician Assistant; Referring Provider Physician Assistant; Visit Provider Radiology Neuroradiology
DX: E04.2 Nontoxic multinodular goiter (principal)
CPT/HCPCS: 10005